=== PATIENT | male | born 1995 | race Caucasian/White ===

== ENCOUNTER 2019-01-15 09:39 | Emergency (ER) | payer OTHER ==
[2019-01-15 10:32] VITALS: BP 113/61
--- NOTE | 2019-01-15 10:53 | UC ---
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 NEW AREAS ON LOWER ABDOMEN AND RIGHT BREAST. PAINFUL AN PRUITIC. ALSO SOME SPOTS ON HIS HANDS. 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 NO FEVER OR CHILLS. " -has had some clear and purulent dc. - History of Current Complaint Chief Complaint: UCSkin Time Seen by Provider: 01/15/19 10:45 Stated Complaint: SKIN COMPLAINT Pain Intensity: 6 - Allergy/Home Medications Allergies/Adverse Reactions: Allergies Allergy/AdvReac Type Severity Reaction Status Date / Time divalproex sodium Allergy Flushing Verified 01/15/19 10:23 [From Depakote] tramadol Allergy Flushing Verified 01/15/19 10:23 PMH/Surg Hx/FS Hx/Imm Hx Previously Healthy: Yes - Surgical History Surgical History: None - Family History Known Family History: Positive: Hypertension - Social History Alcohol Use: Occasionally Substance Use Type: None Smoking Status (MU): Former Smoker Type: Smokeless Tobacco Amount Used/How Often: 1 tin Length of Time of Smoking/Using Tobacco: 2 yrs Review of Systems All Other Systems Reviewed And Are Negative: Yes Constitutional: Positive: Negative Skin: Positive: Rash Eyes: Positive: Negative ENT: Positive: Negative Respiratory: Positive: Negative Cardiovascular: Positive: Negative Gastrointestinal: Positive: Negative Genitourinary: Positive: Negative Motor: Positive: Negative Neurovascular: Positive: Negative Musculoskeletal: Positive: Negative Neurological: Positive: Negative Psychological: Positive: Negative Is Patient Immunocompromised?: No Physical Exam Triage Information Reviewed: Yes Appearance: Well-Appearing, No Pain Distress, Well-Nourished Vital Signs: Initial Vital Signs Temp 97.8 F 01/15/19 10:24 Pulse 95 01/15/19 10:24 Resp 16 01/15/19 10:24 BP 113/61 01/15/19 10:24 Pulse Ox 100 01/15/19 10:24 Vital Signs Reviewed: Yes Eye Exam: Normal ENT Exam: Normal Respiratory Exam: Normal Cardiovascular Exam: Normal Abdominal Exam: Normal Musculoskeletal Exam: Normal Skin: Positive: Other - b/l medial buttocks, right low abdome and right breast w / several keri sized skin eruptions w/ central erythema. no active dc. no streaks. cool to touch. no surrounding skin erythema. Course/Dx - Course Course Of Treatment: Boils b/l buttock, rt lower abdomen, right breast. suspect MRSA -cx taken but there is minimal fluid and cx may be inaccurate -should continue abx even if cx is negative -bactrim DS 1 po bid x 10 d -probiotic - Differential Diagnoses - Skin Complaint Differential Diagnoses: Abscess, MRSA - Diagnoses Provider Diagnosis: Carbuncle and furuncle of buttock Discharge - Sign-Out/Discharge Documenting (check all that apply): Patient Departure All imaging exams completed and their final reports reviewed: No Studies - Discharge Plan Condition: Stable Disposition: HOME Prescriptions: Sulfamethox/Trimethoprim DS* [Bactrim DS 800/160 TAB*] 1 tab PO BID #20 tab Patient Education Materials: Furunculosis and Carbunculosis (ED) Referrals: Jared Patel PA [Primary Care Provider] - 5 Days Additional Instructions: Make sure to take a probiotic daily while on antibiotics to help prevent a potential complication of antibiotic use called c diff. Some well known brands that can be found OTC are florastor, align and Wakozi. Make sure to complete the entire prescription unless advised otherwise by your health care provider. -I would recommend that you continue the antibiotics even if the culture is negative as there was not much discharge and therefore it may not bne an accurate sampling. - Billing Disposition and Condition Condition: STABLE Disposition: Home
== END 2019-01-15 11:07 | disposition home or self-care (01) ==
LOC: UCCORT 09:39
DX: L02.33 Carbuncle of buttock (principal); L02.32 Furuncle of buttock; R21 Rash and other nonspecific skin eruption; Z88.5 Allergy status to narcotic agent; Z88.8 Allergy status to other drugs, medicaments and biological substances; Z87.891 Personal history of nicotine dependence
CPT/HCPCS: 87070; 87077; 87186; 87205; 99212; G0463

== ENCOUNTER 2019-01-25 20:49 | Emergency (ER) | payer OTHER ==
[2019-01-25 21:10] VITALS: BP 109/74
[2019-01-25] MEDS ORDERED: diPHENhydraMINE PO* 50 MG PO ONE (21:24)
--- NOTE | 2019-01-25 21:32 | UC ---
Skin Complaint HPI - HPI Summary HPI Summary: 23 yo male with pruritic rash on buttock x >2 weeks just finished a 10 day course of bactrim DS and chele worsened - History of Current Complaint Chief Complaint: UCSkin Time Seen by Provider: 01/25/19 21:17 Stated Complaint: RASH ON BUTTOCK Hx Obtained From: Patient Onset/Duration: Gradual Onset, Lasting Weeks Timing: Constant Onset Severity: Mild Current Severity: Moderate Pain Intensity: 0 Pain Scale Used: 0-10 Numeric Location: Other - buttock Character: Pruritus, Redness, Raised Aggravating Factor(s): Wet Conditions, Touch Associated Signs & Symptoms: Positive: Rash, Tenderness. Negative: Nausea, Vomiting, Numbness, Thirst, Diaphoresis, Weakness, Pallor, Shivering, Difficulty Breathing, Fever, Chills, Cough, Wheezing, Chest Pain, Hoarseness, Throat Tightening, Abdominal Pain, Lightheadedness, Syncope, Drainage, Bruising , Red Streaks, Joint Swelling - Allergy/Home Medications Allergies/Adverse Reactions: Allergies Allergy/AdvReac Type Severity Reaction Status Date / Time divalproex sodium Allergy Flushing Verified 01/25/19 21:02 [From Depakote] tramadol Allergy Flushing Verified 01/25/19 21:02 PMH/Surg Hx/FS Hx/Imm Hx Previously Healthy: Yes Other History Of: Hepatitis C - Surgical History Surgical History: None - Family History Known Family History: Positive: Hypertension - Social History Alcohol Use: Occasionally Substance Use Type: None Smoking Status (MU): Former Smoker Type: Smokeless Tobacco Amount Used/How Often: 1 tin Length of Time of Smoking/Using Tobacco: 2 yrs Review of Systems All Other Systems Reviewed And Are Negative: Yes Constitutional: Positive: Negative Skin: Positive: Rash Eyes: Positive: Negative ENT: Positive: Negative Respiratory: Positive: Negative Cardiovascular: Positive: Negative Gastrointestinal: Positive: Negative Genitourinary: Positive: Negative Motor: Positive: Negative Neurovascular: Positive: Negative Musculoskeletal: Positive: Negative Neurological: Positive: Negative Psychological: Positive: Negative Physical Exam Triage Information Reviewed: Yes Appearance: Well-Appearing, No Pain Distress Vital Signs: Initial Vital Signs Temp 97.8 F 01/25/19 21:03 Pulse 69 01/25/19 21:03 Resp 16 01/25/19 21:03 BP 109/74 01/25/19 21:03 Pulse Ox 99 01/25/19 21:03 Vital Signs Reviewed: Yes Eyes: Positive: Conjunctiva Clear ENT: Positive: Hearing grossly normal. Negative: Nasal congestion, Nasal drainage, Trismus, Muffled voice, Dental tenderness Neck: Positive: Supple, Nontender, No Lymphadenopathy Respiratory: Positive: Lungs clear, Normal breath sounds, No respiratory distress, No accessory muscle use Cardiovascular: Positive: RRR, No Murmur Musculoskeletal: Positive: ROM Intact, No Edema Neurological: Positive: Alert Psychological Exam: Normal Skin Exam: Other - bith buttock with red rash/some crust/some satellite lesions/ no abscess/no vesicles Course/Dx - Diagnoses Provider Diagnosis: Rash in adult Discharge - Sign-Out/Discharge Documenting (check all that apply): Patient Departure All imaging exams completed and their final reports reviewed: No Studies - Discharge Plan Condition: Stable Disposition: HOME Prescriptions: Fluconazole 150 MG (NF) [Diflucan 150 mg (NF)] 150 mg PO WEEKLY #3 tab Triamcinolone 0.5% CREAM(NF) [Triamcinolone 0.5% CREAM*] 1 applic TOPICAL TID # 60 tube Patient Education Materials: Acute Rash (ED) Referrals: Jared Patel PA [Primary Care Provider] - 1 Week Additional Instructions: I suggest you do epsom salt compresses for 20 minutes every morning and night benadryl 50 mg at bedtime for itching - Billing Disposition and Condition Condition: STABLE Disposition: Home
== END 2019-01-25 21:40 | disposition home or self-care (01) ==
LOC: UCCORT 20:49
DX: R21 Rash and other nonspecific skin eruption (principal); F17.210 Nicotine dependence, cigarettes, uncomplicated
CPT/HCPCS: 99212; A9270-GY; G0463